=== PATIENT | male | born 1960 | race Caucasian/White ===

== ENCOUNTER 2016-06-03 09:21 | Emergency (ER) ==
[2016-06-03] MEDS ORDERED: NITROGLYCERIN SL PRN (09:55)
[2016-06-03] MEDS ORDERED: CATAPRES PO ONE (09:55)
[2016-06-03] MEDS ORDERED: ASPIRIN PO STA (09:55)
--- NOTE | 2016-06-03 10:00 | PROVIDER DOCUMENTATION ---
HPI-General Adult - General Chief Complaint: B/P Problems Stated Complaint: HIGH B/P Time Seen by Provider: 06/03/16 09:43 Source: patient Allergies/Adverse Reactions: Patient Allergies Allergy/AdvReac Type Severity Reaction Status Date / Time No Known Allergies Allergy Verified 06/03/16 10:15 Home Medications: Home Medication List Medication Instructions Recorded Confirmed Last Taken Type No Home Medications 06/03/16 06/03/16 Unknown History - History of Present Illness -Gen Adult Nature of Presenting Problems: patient is a 55 y/o M that presents to the ER with headache and dizziness x 2 weeks. patient reports his blood pressure up. he has history of HTN and hasn't seen a MD in over a year. He had some old BP meds ( Lisinopril in which he has double it up). patient denies any focal neuro issues and chest pain. Location of Pain/Injury: reports: head Pain Radiation: reports: no radiation Quality of Pain: reports: throbbing Severity: reports: mild Onset/Duration: reports: gradual, other (2 weeks) Timing: reports: still present, constant Context/Activities at Onset: reports: other (no bp meds) Modifying Factors: improves with: nothing Associated Symptoms: reports: dizziness, headaches. denies: back/neck pain, chest pain, constipation, cough, diaphoresis, diarrhea, fever/chills, genitourinary problems, nausea, vomiting Similar Symptoms Previously?: No Recently seen or treated by another doctor?: No Review of Systems - Adult - REVIEW OF SYSTEMS - ADULT Constitutional: reports: no symptoms reported Eyes: denies: decreased vision, blurred vision, double vision Ears, Nose, Mouth & Throat: denies: ear discharge, ear pain, epistaxis, sinus problem Cardiovascular: denies: chest pain, palpitations, syncope Respiratory: denies: dyspnea on exertion, excessive sputum production, shortness of breath Gastrointestinal: denies: abdominal pain, nausea, vomiting Genitourinary: reports: no symptoms reported Musculoskeletal: reports: no symptoms reported Integumentary: reports: no symptoms reported Neurological: reports: dizziness/vertigo, headache/migraines. denies: loss of balance, numbness, paresthesia, syncope Psychiatric: reports: no symptoms reported Endocrine: reports: no symptoms reported Hematologic/Lymphatic: reports: no symptoms reported Allergic/Immunologic: reports: no symptoms reported All Other Systems: Reviewed and Negative Past History - Adult - PAST MEDICAL HISTORY-ADULT Review of Records: reports: Nursing Assessment Review, Medications Reviewed Cardiovascular: reports: HTN - PRIOR SURGERIES/PROCEDURES Surgical/Procedure History: reports: none - IMMUNIZATION STATUS Childhood Immunizations: See Nurse Assessment Flu Vaccine: See Nurse Assessment - FAMILY HISTORY Family History: reviewed, not pertinent - SOCIAL HISTORY Smoking: cigarettes, greater than 1 pack/day Provider spent 3-5 mins advising pt. on dangers of tobacco.: Discussed manners to quit use, and f/u contacts for add'l counseling. Living Situation: family Physical Exam-General - PHYSICAL EXAM-ADULT Initial Vital Signs Reviewed: Yes - CONSTITUTIONAL General Appearance: alert, no apparent distress - EYES Eyes: PERRL/EOMI, pink conjunctivae - HEAD, EARS, NOSE, MOUTH & THROAT HENMT: normocephalic/atraumatic, moist mucous membranes, normal ENT inspection - NECK Neck: full range of motion, normal inspection. negative: lymphadenopathy, meningismus - RESPIRATORY Respiratory: chest non-tender, lungs clear, normal breath sounds, no respiratory distress, no accessory muscle use - CARDIOVASCULAR Cardiovascular: regular rate, rhythm, no edema, no murmur - GASTROINTESTINAL (ABDOMEN) Abdominal Exam: normal bowel sounds, non tender, soft, no organomegaly, no pulsatile mass - MUSCULOSKELETAL Back Exam: no CVA tenderness, no vertebral tenderness Extremity: normal range of motion, normal inspection, no pedal edema, normal capillary refill - SKIN Integumentary: normal color, warm/dry - NEUROLOGIC Neurologic: grossly normal, no motor/sensory deficits - PSYCHIATRIC Psych/Mental Status: normal mood/affect, normal thought content, normal thought process, oriented x 3 Progress - PLAN OF CARE/RESULTS Progress/Plan/Lab Results: plan of care-labs, meds, ekg, cxr Vital Signs Temp Pulse Resp BP Pulse Ox 06/03/16 10:56 53 L 14 202/113 96 06/03/16 09:27 97.9 F 75 18 219/107 100 No Known Allergies Allergy (Verified 06/03/16 10:15) No Home Medications 06/03/16 Laboratory 06/03/16 06/03/16 06/03/16 09:54 09:54 09:54 WBC RBC Hgb Hct MCV MCH MCHC RDW Std Deviation Plt Count MPV Immature Gran % (Auto) Neut % (Auto) Lymph % (Auto) [place] % (Auto) Eos % (Auto) Baso % (Auto) Immature Gran # (Auto) Neut # (Auto) Lymph # (Auto) [place] # (Auto) Eos # (Auto) Baso # (Auto) PT 9.9 INR 0.97 PTT (Actin FS) 24.5 Sodium Potassium Chloride Carbon Dioxide Anion Gap BUN Creatinine Estimated GFR/1.73 m2 BUN/Creatinine Ratio Glucose Calculated Osmolality Calcium Magnesium Total Bilirubin AST ALT Alkaline Phosphatase Creatine Kinase Troponin T < 0.010 [id number]-[id number] Pept 322 H Total Protein Albumin Globulin Albumin/Globulin Ratio 06/03/16 06/03/16 09:54 09:54 WBC 8.62 RBC 4.40 L Hgb 11.8 L Hct 38.5 L MCV 87.5 MCH 26.8 L MCHC 30.6 L RDW Std Deviation 14.0 Plt Count 410 H MPV 10.3 Immature Gran % (Auto) 0.0 Neut % (Auto) 61.4 Lymph % (Auto) 26.8 [place] % (Auto) 9.4 H Eos % (Auto) 2.1 Baso % (Auto) 0.3 Immature Gran # (Auto) 0.00 Neut # (Auto) 5.29 Lymph # (Auto) 2.31 [place] # (Auto) 0.81 H Eos # (Auto) 0.18 Baso # (Auto) 0.03 PT INR PTT (Actin FS) Sodium 144 Potassium 3.4 L Chloride 106 Carbon Dioxide 27 Anion Gap 11 BUN 14 Creatinine 0.9 Estimated GFR/1.73 m2 > 60 BUN/Creatinine Ratio 16 Glucose 96 Calculated Osmolality 287 Calcium 8.7 L Magnesium 2.2 Total Bilirubin 0.28 AST 13 ALT 10 Alkaline Phosphatase 155 H Creatine Kinase 132 Troponin T Yxy-W-Rvcgfkrqkep Pept Total Protein 7.4 Albumin 3.6 Globulin 3.8 Albumin/Globulin Ratio 0.9 Orders Category Date Time Status Cardiac Monitoring DIRECTED Care 06/03/16 09:55 Active Saline Loc NOW Care 06/03/16 09:55 Active CHEST-2 VIEWS [RAD] Stat Exams 06/03/16 09:55 Draft CBC WITH ELECTRONIC DIFF [HEME] Stat Lab 06/03/16 09:54 Completed CK PROFILE [SP CHEM] Stat Lab 06/03/16 09:54 Completed COMPREHENSIVE METABOLIC PANEL [CHEM] Stat Lab 06/03/16 09:54 Completed MAGNESIUM [CHEM] Stat Lab 06/03/16 09:54 Completed PRO B-NATRIURETIC PEPTIDE Stat Lab 06/03/16 09:54 Completed PROTIME WITH INR [COAG] Stat Lab 06/03/16 09:54 Completed PTT [COAG] Stat Lab 06/03/16 09:54 Completed TROPONIN T Stat Lab 06/03/16 09:54 Completed Aspirin Med 06/03/16 09:55 Discontinued 325 mg PO STAT STA Clonidine [Catapres] Med 06/03/16 09:55 Discontinued 0.2 mg PO NOW ONE Nitroglycerin Sl [Nitroglycerin] Med 06/03/16 09:55 Active 0.4 mg SL Q5M PRN PRN EKG [EKG] Stat Ther 06/03/16 09:55 Ordered pt will be d/c home f/u with pcp, pt was clinically and neurologically stable, pt understood results and instructions. - REASSESSMENT Reassessment #1 Time Reassessed: 11:15 Status: improving Reassessment Comment: BP 144/86, pt will be d/c home with rx - XRAY 1 XRAY Study: Chest Impression: Abnormal XRAY Interpretation: hital hernia, nap per Departure - Departure Time of Disposition Order: 11:16 DIAGNOSIS: Uncontrolled hypertension, Tobacco abuse Disposition: HOME 01 Certified Medical Emergency: Emergent Condition: Stable Additional Instructions: ED Follow Up Instructions: You have been treated by a care provider in the Emergency Department. These instructions are being provided to you so you can have an understanding of how to care for yourself upon discharge. Upon discharge from the Emergency Department, you are responsible for making arrangements for follow-up care by a physician of your choice. Take all prescribed medications as directed. Return to the Emergency Department immediately for any new or worsening symptoms. You may call the Physician Referral phone number at [phone] to obtain a list of Physicians who are taking new patients. Referrals: None,PCP [Primary Care Provider] - Instructions: Hypertension-SportsMed, Tobacco Use Disorder Attestation - Scribe Verification/Attestation Scribe:: Mervin Mcnair Acting as Scribe for:: David Braga Scribe documention review:: This chart was documented by a scribe and accurately reflects the service the provider performed and the decisions made by the provider. Physician Attestation - Physician Attestation I, the provider, attest to the following statement:: David Braga Physician documentation Attestation:: This documentation recorded by the scribe accurately reflects the service I personally performed and the decisions made by me.
[2016-06-03 10:29] LABS: BASO% 0.3 % (0.0-0.8); EOS# 0.18 X1000 (0.0-0.7); EOS% 2.1 % (0.0-10.0); HEMATOCRIT 38.5 % (42.0-52.0); HEMOGLOBIN 11.8 g/dL (14.0-18.0); LYMPH# 2.31 X1000 (1.2-3.4); LYMPH% 26.8 % (20.5-51.1); MANUAL DIFF NEEDED? NO; MCH 26.8 PG (27-31); MCHC 30.6 g/dL (33-37); MCV 87.5 FL (81-99); MONO# 0.81 X1000 (0.11-0.59); MONO% 9.4 % (1.7-9.3); MPV 10.3 FL (7.4-10.4); NEUT% 61.4 % (42.2-75.2); PLT 410 X1000 (130-400)
[2016-06-03 10:39] LABS: INR 0.97; PROTIME 9.9 Seconds (9.2-11.7); PTT 24.5 Seconds (22.0-36.0)
[2016-06-03 10:46] LABS: AGAP 11; ALBUMIN 3.6 g/dL (3.5-5.0); ALKALINE PHOSPHATASE 155 U/L (32-122); BUN 14 mg/dL (8-22); CALCIUM 8.7 mg/dL (8.8-10.2); CHLORIDE 106 mmol/L (98-107); CK PROFILE 132 U/L (24-204); COSMO 287; GOT 13 U/L (10-34); GPT 10 U/L (10-44); MAGNESIUM 2.2 mg/dL (1.5-2.7); POTASSIUM 3.4 mmol/L (3.5-5.1); SODIUM 144 mmol/L (136-145); TCO2 27 mmol/L (25-35); TOTAL BILIRUBIN 0.28 mg/dL (0.20-1.00); TOTAL PROTEIN 7.4 g/dL (6.3-8.3)
--- NOTE | 2016-06-03 10:47 | Diag Imaging Result Document ---
PROCEDURE NAME: CHEST-2 VIEWS - 06/03/2016 PA AND LATERAL RADIOGRAPHS OF THE CHEST: COMPARISON: None available. FINDINGS: The lungs are grossly clear. There is no definite pleural fluid collection. There is evidence to a [id number] size hiatal hernia which can also be seen on a prior upper GI in 2013. Cardiac silhouette and central vasculature are grossly unremarkable, otherwise. IMPRESSION: Hiatal hernia but no definite acute pathology.
[2016-06-03 12:07] VITALS: BP 123/79
== END 2016-06-03 12:06 | disposition home or self-care (01) ==
LOC: ED 09:21
DX: I10 Essential (primary) hypertension (principal); R51 Headache; R42 Dizziness and giddiness; F17.210 Nicotine dependence, cigarettes, uncomplicated; Z71.6 Tobacco abuse counseling
CPT/HCPCS: 71020; 80053; 82550; 83735; 83880; 84484; 85025; 85610; 85730

== ENCOUNTER 2016-06-07 16:45 | Emergency (ER) ==
--- NOTE | 2016-06-07 17:17 | ED EKG INTERP ---
EKG Interpretation - EKG Time of EKG reading by physician:: 16:57 EKG Read and Signed by:: Bi Nevarez EKG Interpretation (*Must complete 3 of following elements*): Abnormal (ST and T wave abnormality, consider anterolateral ischemia) Rate: 77 Rhythm: normal sinus rhythm Comments: ST and T wave abnormality, consider inferior ischemia Attestation - Scribe Verification/Attestation Scribe:: Natasha Barahona Acting as Scribe for:: Bi Nevarez Scribe documention review:: This chart was documented by a scribe and accurately reflects the service the provider performed and the decisions made by the provider.
--- NOTE | 2016-06-07 17:38 | PROVIDER DOCUMENTATION ---
HPI-Syncope/Dizziness - General Source: patient - History of Present Illness-Syncope/Dizzy Prior Episodes: reports: remote history Onset/Duration: reports: just prior to arrival Timing: reports: getting worse Position/Activity at time of episode: reports: standing Symptoms prior to episode: reports: lightheaded Context: reports: unknown Loss of Consciousness: unsure Location of injury. (If syncope resulted in an injury.): reports: none Current Symptoms: reports: none/feels normal Recently Seen Here or By Another Healthcare Provider: Yes - Dizziness Severity in ED: reports: mild Dizziness Related Current/Associated Symptoms: reports: none/feels normal Any recent trauma/injury?: reports: none Modifying Factors: improves with: nothing Patient usually:: reports: walks without assistance <Natasha Barahona - Last Filed: 06/07/16 17:45> <Marko Khan - Last Filed: 06/07/16 21:15> - General Chief Complaint: Syncope Stated Complaint: SEIZURE Time Seen by Provider: 06/07/16 17:06 Allergies/Adverse Reactions: Patient Allergies Allergy/AdvReac Type Severity Reaction Status Date / Time No Known Allergies Allergy Verified 06/07/16 20:39 Home Medications: Home Medication List Medication Instructions Recorded Confirmed Last Taken Type Lisinopril/Hydrochlorothiazide 1 each PO DAILY #30 tablet 06/03/16 06/07/16 Rx [Lisinopril-Hctz 20-25 mg Tab] - History of Present Illness-Syncope/Dizzy Nature of Presenting Problem: Pt is 55 y/o M presents to the ED with syncopal episode. Pt states he was in ED on Thursday for BP and was put on new meds. Pt states feeling lightheaded, dizzy , and clammy. Pt's family states they think he passed out and he states he did not (Natasha Barahona) Review of Systems - Adult - REVIEW OF SYSTEMS - ADULT Constitutional: denies: chills, fever Eyes: denies: blurred vision, double vision Ears, Nose, Mouth & Throat: denies: ear pain, nose pain, throat pain Cardiovascular: denies: chest pain, heart murmur, irregular heart rate Respiratory: denies: cough, shortness of breath, wheezing Gastrointestinal: denies: abdominal pain, diarrhea, nausea, vomiting Genitourinary: denies: dysuria, hematuria Musculoskeletal: denies: bone pain, joint pain, neck pain Integumentary: denies: hives, itching Neurological: reports: dizziness/vertigo (dizziness), syncope. denies: headache /migraines Psychiatric: reports: no symptoms reported Endocrine: reports: no symptoms reported Hematologic/Lymphatic: reports: no symptoms reported Allergic/Immunologic: reports: no symptoms reported All Other Systems: Reviewed and Negative <Natasha Barahona - Last Filed: 06/07/16 17:45> Past History - Adult - PAST MEDICAL HISTORY-ADULT Review of Records: reports: Nursing Assessment Review, Medications Reviewed, Social history reviewed & non-contributory. Major Childhood Illnesses: reports: denies history Cardiovascular: reports: HTN Respiratory: reports: denies history Gastrointestinal: reports: denies history Obstetrical/Gynecological: reports: denies history Genitourinary: reports: denies history Musculoskeletal: reports: denies history Neurological: reports: denies history Endocrine/Immune: reports: denies history Other Conditions: reports: denies history - PRIOR SURGERIES/PROCEDURES Surgical/Procedure History: reports: none - IMMUNIZATION STATUS Childhood Immunizations: See Nurse Assessment Flu Vaccine: See Nurse Assessment - FAMILY HISTORY Family History: reviewed, not pertinent - SOCIAL HISTORY Smoking: cigarettes, less than 1 pack/day Provider spent 3-5 mins advising pt. on dangers of tobacco.: Discussed manners to quit use, and f/u contacts for add'l counseling. Substance Use: denies Living Situation: family <JunNatasha - Last Filed: 06/07/16 17:45> Physical Exam-General - PHYSICAL EXAM-ADULT Initial Vital Signs Reviewed: Yes - CONSTITUTIONAL General Appearance: appears well, alert, no apparent distress - EYES Eyes: PERRL/EOMI, pink conjunctivae, fundi clear, no AV nicking - HEAD, EARS, NOSE, MOUTH & THROAT HENMT: normocephalic/atraumatic, moist mucous membranes, normal ENT inspection, TMs normal, pharynx normal - NECK Neck: non-tender, full range of motion, supple, normal inspection - RESPIRATORY Respiratory: chest non-tender, lungs clear, normal breath sounds, no pleuratic chest pain, no respiratory distress, no accessory muscle use - CARDIOVASCULAR Cardiovascular: normal peripheral pulses, regular rate, rhythm, no edema, no gallop, no JVD, no murmur - GASTROINTESTINAL (ABDOMEN) Abdominal Exam: normal bowel sounds, non tender, soft, no organomegaly, no pulsatile mass - LYMPHATIC Lymphatic: no adenopathy - MUSCULOSKELETAL Back Exam: normal inspection, no CVA tenderness, no vertebral tenderness Extremity: normal range of motion, non-tender, normal gait, normal inspection, no pedal edema, no calf tenderness, normal capillary refill, pelvis stable - SKIN Integumentary: normal color, normal turgor, warm/dry - NEUROLOGIC Neurologic: grossly normal - PSYCHIATRIC Psych/Mental Status: normal mood/affect, oriented x 3 <Natasha Barahona - Last Filed: 06/07/16 17:45> Progress - CHANGE OF SHIFT REPORT (ED Provider) Report Given and Care Transferred to:: Dr. Farley Time of Transfer: 17:51 Items Pending: Labs, XRAY Results, CT/MRI Results <Natasha Barahona - Last Filed: 06/07/16 17:45> - REASSESSMENT Reassessment #1 Time Reassessed: 19:26 Status: improving (Pt reports feeling better, denies chest pain but reports mild lightheadedness. Dr. Farley discussed results of pt's labs and X-rays and told pt that if 2nd set of cardiac enzymes were negative, he would discharge pt. Pt and [id number] verbally acknowledged and agreed.) Reassessment #2 Time Reassessed: 21:14 Status: improving (Pt's second set of cardiac enzymes were negative and pt no longer has chest pain. Pt is aware of his lab results and requests to be discharged and will follow up with Dr. Vaughan or return to ER if symptoms return.) - XRAY 1 XRAY: Bilateral XRAY Study: Chest Impression: See EMR Report XRAY Interpretation: Chronic COPD changes, no acute findings - CT/MRI 1 CT Study: Head Impression: See EMR Report CT Results: NAP - CHANGE OF SHIFT REPORT (ED Provider) Report Given and Care Transferred to:: Dr. Farley Time of Transfer: 18:17 Items Pending: Labs, XRAY Results, CT/MRI Results <Marko Khan - Last Filed: 06/07/16 21:15> - PLAN OF CARE/RESULTS Progress/Plan/Lab Results: Orders Category Date Time Status Cardiac Monitoring DIRECTED Care 06/07/16 17:18 Active Finger Stick Blood Sugar (ED) DIRECTED Care 06/07/16 17:18 Active Saline Loc NOW Care 06/07/16 17:18 Active CHEST-PORTABLE [RAD] Stat Exams 06/07/16 17:18 Taken HEAD W/O CONTRAST [CT] Stat Exams 06/07/16 17:18 Ordered ABG [RESP] Routine Lab 06/07/16 17:18 Ordered ALCOHOL BLOOD Stat Lab 06/07/16 17:18 Uncollected CBC WITH ELECTRONIC DIFF [HEME] Stat Lab 06/07/16 17:18 Uncollected CK PROFILE [SP CHEM] Stat Lab 06/07/16 17:18 Uncollected COMPREHENSIVE METABOLIC PANEL [CHEM] Stat Lab 06/07/16 17:18 Uncollected LIPASE [CHEM] Stat Lab 06/07/16 17:19 Uncollected PROTIME WITH INR [COAG] Stat Lab 06/07/16 17:18 Uncollected PTT [COAG] Stat Lab 06/07/16 17:18 Uncollected TROPONIN T Stat Lab 06/07/16 17:18 Uncollected URINALYSIS W/POSS RFLX CULT [URINALYSIS] Stat Lab 06/07/16 17:18 Uncollected URINE DRUG SCREEN Stat Lab 06/07/16 17:18 Uncollected Pulse Oximetry Stat Oth 06/07/16 17:18 Completed EKG [EKG] Stat Ther 06/07/16 17:18 Ordered Vital Signs - 24 hr 06/07/16 16:51 Temperature 97.7 F Pulse Rate 81 Respiratory 20 Rate Blood Pressure 133/89 O2 Sat by Pulse 100 Oximetry (Natasha Barahona) Vital Signs - 24 hr 06/07/16 06/07/16 16:51 17:57 Temperature 97.7 F Pulse Rate 81 76 Respiratory 20 Rate Blood Pressure 133/89 130/81 O2 Sat by Pulse 100 94 L Oximetry Orders Category Date Time Status Cardiac Monitoring DIRECTED Care 06/07/16 17:18 Active Finger Stick Blood Sugar (ED) DIRECTED Care 06/07/16 17:18 Active Saline Loc NOW Care 06/07/16 17:18 Active CHEST-PORTABLE [RAD] Stat Exams 06/07/16 17:18 Taken HEAD W/O CONTRAST [CT] Stat Exams 06/07/16 17:18 Draft ABG [RESP] Routine Lab 06/07/16 17:48 Completed ALCOHOL BLOOD Stat Lab 06/07/16 18:16 Completed CBC WITH ELECTRONIC DIFF [HEME] Stat Lab 06/07/16 18:16 Completed CK PROFILE [SP CHEM] Stat Lab 06/07/16 18:16 Completed COMPREHENSIVE METABOLIC PANEL [CHEM] Stat Lab 06/07/16 18:16 Completed LIPASE [CHEM] Stat Lab 06/07/16 18:16 Completed PROTIME WITH INR [COAG] Stat Lab 06/07/16 18:16 Completed PTT [COAG] Stat Lab 06/07/16 18:16 Completed TROPONIN T Stat Lab 06/07/16 18:16 Completed TROPONIN T Stat Lab 06/07/16 20:26 Completed URINALYSIS W/POSS RFLX CULT [URINALYSIS] Stat Lab 06/07/16 17:18 Uncollected URINE DRUG SCREEN Stat Lab 06/07/16 17:18 Uncollected Albuterol 2.5MG/Ipratrop 0.5MG [Duoneb (A & A)] Med 06/07/16 19:47 Discontinued 3 ml INH NOW ONE CefTRIAXONE 1 GM/NS [Rocephin 1 gm/Ns] 50 ml Med 06/07/16 19:47 Discontinued IV NOW Potassium Chloride E.r. [Klor-Con] Med 06/07/16 20:00 Discontinued 20 meq PO NOW ONE Aerosol Treatments Routine Oth 06/07/16 19:47 Active Aerosol Treatments Stat Oth 06/07/16 19:47 Active Pulse Oximetry Stat Oth 06/07/16 17:18 Completed EKG [EKG] Stat Ther 06/07/16 17:18 Ordered EKG [EKG] Stat Ther 06/07/16 19:46 Ordered Laboratory Tests 06/07/16 06/07/16 06/07/16 17:48 18:16 18:16 WBC 12.04 H RBC 4.53 L Hgb 12.1 L Hct 38.5 L MCV 85.0 MCH 26.7 L MCHC 31.4 L RDW Std Deviation 14.1 Plt Count 381 MPV 10.2 Immature Gran % (Auto) 0.2 Neut % (Auto) 79.0 H Lymph % (Auto) 12.2 L Troup % (Auto) 7.7 Eos % (Auto) 0.7 Baso % (Auto) 0.2 Immature Gran # (Auto) 0.03 Neut # (Auto) 9.51 H Lymph # (Auto) 1.47 Troup # (Auto) 0.93 H Eos # (Auto) 0.08 Baso # (Auto) 0.02 PT INR PTT (Actin FS) Specimen Type ARTERIAL Sample Site R RADIAL pH 7.45 pCO2 41 pO2 53 L HCO3 27.9 H Base Excess 4.1 H Oxyhemoglobin 87.3 L* ABG O2 Sat (Calculated) 14.6 L ABG O2 Saturation 94.8 L ABG Carboxyhemoglobin 6.40 H* ABG Methemoglobin 1.6 H Mayito Test YES A-a O2 Difference 45.0 Total Hemoglobin 11.9 Lactate 0.90 Blood Gas Modality ROOM AIR FiO2 % 21.0 Sodium Potassium Chloride Carbon Dioxide Anion Gap BUN Creatinine Estimated GFR/1.73 m2 BUN/Creatinine Ratio Glucose Calculated Osmolality Calcium Total Bilirubin AST ALT Alkaline Phosphatase Creatine Kinase Troponin T Total Protein Albumin Globulin Albumin/Globulin Ratio Lipase Plasma/Serum Ethyl Alc 06/07/16 06/07/16 06/07/16 18:16 18:16 18:16 WBC RBC Hgb Hct MCV MCH MCHC RDW Std Deviation Plt Count MPV Immature Gran % (Auto) Neut % (Auto) Lymph % (Auto) Troup % (Auto) Eos % (Auto) Baso % (Auto) Immature Gran # (Auto) Neut # (Auto) Lymph # (Auto) Troup # (Auto) Eos # (Auto) Baso # (Auto) PT 11.1 INR 1.05 PTT (Actin FS) 24.7 Specimen Type Sample Site pH pCO2 pO2 HCO3 Base Excess Oxyhemoglobin ABG O2 Sat (Calculated) ABG O2 Saturation ABG Carboxyhemoglobin ABG Methemoglobin Mayito Test A-a O2 Difference Total Hemoglobin Lactate Blood Gas Modality FiO2 % Sodium 135 L Potassium 3.1 L Chloride 94 L Carbon Dioxide 29 Anion Gap 12 BUN 20 Creatinine 1.8 H Estimated GFR/1.73 m2 39 BUN/Creatinine Ratio 11 Glucose 102 Calculated Osmolality 273 Calcium 8.6 L Total Bilirubin 0.73 AST 12 ALT 11 Alkaline Phosphatase 154 H Creatine Kinase 123 Troponin T < 0.010 Total Protein 7.6 Albumin 3.7 Globulin 3.9 Albumin/Globulin Ratio 0.9 Lipase 34 Plasma/Serum Ethyl Alc 06/07/16 20:26 WBC RBC Hgb Hct MCV MCH MCHC RDW Std Deviation Plt Count MPV Immature Gran % (Auto) Neut % (Auto) Lymph % (Auto) Troup % (Auto) Eos % (Auto) Baso % (Auto) Immature Gran # (Auto) Neut # (Auto) Lymph # (Auto) Troup # (Auto) Eos # (Auto) Baso # (Auto) PT INR PTT (Actin FS) Specimen Type Sample Site pH pCO2 pO2 HCO3 Base Excess Oxyhemoglobin ABG O2 Sat (Calculated) ABG O2 Saturation ABG Carboxyhemoglobin ABG Methemoglobin Mayito Test A-a O2 Difference Total Hemoglobin Lactate Blood Gas Modality FiO2 % Sodium Potassium Chloride Carbon Dioxide Anion Gap BUN Creatinine Estimated GFR/1.73 m2 BUN/Creatinine Ratio Glucose Calculated Osmolality Calcium Total Bilirubin AST ALT Alkaline Phosphatase Creatine Kinase Troponin T < 0.010 Total Protein Albumin Globulin Albumin/Globulin Ratio Lipase Plasma/Serum Ethyl Alc (Marko Khan) Departure <Natasha Barahona - Last Filed: 06/07/16 17:45> - Departure Time of Disposition Order: 21:14 Certified Medical Emergency: Emergent <Marko Khan - Last Filed: 06/07/16 21:15> - Departure DIAGNOSIS: HTN (hypertension) Qualifiers: Hypertension type: unspecified secondary hypertension Qualified Code(s): I15.9 - Secondary hypertension, unspecified; I15 - Secondary hypertension Syncope Qualifiers: Syncope type: unspecified Qualified Code(s): R55 - Syncope and collapse COPD (chronic obstructive pulmonary disease) Qualifiers: COPD type: unspecified COPD Qualified Code(s): J44.9 - Chronic obstructive pulmonary disease, unspecified Disposition: HOME 01 Condition: Stable Additional Instructions: Follow up with Dr. Vaughan on Thursday. Continue home medications. Given rx for [facility] ED Follow Up Instructions: You have been treated by a care provider in the Emergency Department. These instructions are being provided to you so you can have an understanding of how to care for yourself upon discharge. Upon discharge from the Emergency Department, you are responsible for making arrangements for follow-up care by a physician of your choice. Take all prescribed medications as directed. Return to the Emergency Department immediately for any new or worsening symptoms. You may call the Physician Referral phone number at [phone] to obtain a list of Physicians who are taking new patients. Referrals: None,PCP [Primary Care Provider] - Attestation - Scribe Verification/Attestation Scribe:: Natasha Barahona Acting as Scribe for:: Bi Nevarez Scribe documention review:: This chart was documented by a scribe and accurately reflects the service the provider performed and the decisions made by the provider. - Scribe Verification/Attestation #2 Shift Change Time: 17:51 Scribe Name: Marko Khan Acting as Scribe for:: Reggie Farley <Natasha Barahona - Last Filed: 06/07/16 17:45> - Scribe Verification/Attestation Scribe:: Marko Khan Acting as Scribe for:: Reggie Farley Scribe documention review:: This chart was documented by a scribe and accurately reflects the service the provider performed and the decisions made by the provider. <Marko Khan - Last Filed: 06/07/16 21:15> Physician Attestation
[2016-06-07 17:54] LABS: ALLEN TEST YES; BE 4.1 mmoll (-3.0-3.0); BLOOD TYPE ARTERIAL; DRAW SITE R RADIAL; METHB 1.6 % (0.0-1.5); O2(CT) 14.6 mL/dL (15.0-23.0); PCO2(98.6) 41 mmHg (35-45); PO2(98.6) 53 mmHg (60-100); SAMPLE BLOOD; SAO2 94.8 % (95.0-100.0); THB 11.9 g/dL (11.5-17.4); pH(98.6) 7.45 (7.35-7.45)
[2016-06-07 17:59] LABS: MODALITY ROOM AIR
[2016-06-07 18:27] LABS: MANUAL DIFF NEEDED? NO
[2016-06-07 18:41] LABS: BASO% 0.2 % (0.0-0.8); EOS# 0.08 X1000 (0.0-0.7); EOS% 0.7 % (0.0-10.0); HEMATOCRIT 38.5 % (42.0-52.0); HEMOGLOBIN 12.1 g/dL (14.0-18.0); IMM GRAN# 0.03 X1000 (0.0-0.04); IMM GRAN% 0.2 % (0.0-0.5); LYMPH# 1.47 X1000 (1.2-3.4); LYMPH% 12.2 % (20.5-51.1); MCH 26.7 PG (27-31); MCHC 31.4 g/dL (33-37); MONO# 0.93 X1000 (0.11-0.59); MONO% 7.7 % (1.7-9.3); MPV 10.2 FL (7.4-10.4); PLT 381 X1000 (130-400); RBC 4.53 XMIL (4.7-6.1)
[2016-06-07 18:47] LABS: INR 1.05; PROTIME 11.1 Seconds (9.2-11.7); PTT 24.7 Seconds (22.0-36.0)
[2016-06-07 18:55] LABS: ALBUMIN 3.7 g/dL (3.5-5.0); CALCIUM 8.6 mg/dL (8.8-10.2); POTASSIUM 3.1 mmol/L (3.5-5.1); TOTAL BILIRUBIN 0.73 mg/dL (0.20-1.00); TOTAL PROTEIN 7.6 g/dL (6.3-8.3)
[2016-06-07] MEDS ORDERED: DUONEB (A & A) INH ONE (19:47)
[2016-06-07] MEDS ORDERED: ROCEPHIN 1 GM/NS 50 ML IV ONE (19:47)
[2016-06-07] MEDS ORDERED: KLOR-CON PO ONE (20:00)
--- NOTE | 2016-06-07 21:03 | Diag Imaging Result Document ---
PROCEDURE NAME: HEAD W/O CONTRAST - 06/07/2016 CT HEAD WITHOUT CONTRAST: COMPARISON: 11/28/2013. FINDINGS: There appear to be a couple chronic lacunar infarcts involving the thalamus on the left and the right basal ganglion. These cannot be identified on the previous study. However, they are clearly chronic. There is no evidence of acute infarct given the limited sensitivity of CT versus MRI. There is no discrete intracranial mass, mass effect, or intracranial hemorrhage. There is no evidence of hydrocephalus. There is right maxillary and bilateral ethmoid sinus mucosal disease. Surrounding soft tissues and bony structures are essentially unremarkable, otherwise. IMPRESSION: A couple chronic lacunar infarcts involving the deep baez matter bilaterally that have developed during the interval. However, there is no evidence of acute intracranial pathology.
--- NOTE | 2016-06-07 21:15 | Diag Imaging Result Document ---
PROCEDURE NAME: CHEST-PORTABLE - 06/07/2016 SINGLE FRONTAL RADIOGRAPH OF THE CHEST: COMPARISON: 06/03/2016. FINDINGS: There is a stable hiatal hernia. There is evidence of prior granulomatous disease. The lungs are clear otherwise. There is no definite pleural fluid collection. Cardiac silhouette is unremarkable. IMPRESSION: No definite acute pathology.
[2016-06-07 21:57] VITALS: BP 139/89
--- NOTE | 2016-06-08 06:07 | EKG Report ---
Test Performed on : 06/07/2016 4:57:40 PM Test Reason : AMS Blood Pressure : / mmHG Vent. Rate : 077 BPM Atrial Rate : 077 BPM P-R Int : 152 ms QRS Dur : 080 ms QT Int : 396 ms P-R-T Axes : 043 009 204 degrees QTc Int : 448 ms Normal sinus rhythm. ST & T wave abnormality, consider inferior ischemia ST & T wave abnormality, consider anterolateral ischemia Abnormal ECG When compared with ECG of 28-NOV-2013 14:09, Inverted T waves have replaced nonspecific T wave abnormality in Inferior leads T wave inversion now evident in Anterior leads Unconfirmed Result
== END 2016-06-07 21:57 | disposition home or self-care (01) ==
LOC: ED 16:45
DX: R55 Syncope and collapse (principal); I10 Essential (primary) hypertension; J44.9 Chronic obstructive pulmonary disease, unspecified; R94.31 Abnormal electrocardiogram [ECG] [EKG]; R42 Dizziness and giddiness; F17.210 Nicotine dependence, cigarettes, uncomplicated; Z79.899 Other long term (current) drug therapy; Z71.6 Tobacco abuse counseling
CPT/HCPCS: 70450; 71010; 80053; 82550; 82805; 82948; 83690; 84484; 85025; 85610; 85730; 93005; G0480; J0696; 80320